=== PATIENT | female | born 1945 | race Two or more races ===

== ENCOUNTER 2024-11-10 12:40 | Emergency (ER) | payer MEDICAID, SELFPAY ==
[2024-11-10 13:04] VITALS: BP 166/83; PULSE 72; RESP 18; TEMP 36.6; O2SAT 96; BMI 42.8
--- NOTE | 2024-11-10 13:13 | XR_ITS ---
Examination: CT abdomen and pelvis without contrast. Coronal 3-D reconstructions. Sagittal 2-D reconstructions. Date and time of exam:November 10, 2024 1325 hours Comparison December 27, 2023 INDICATIONS: Generalized abdominal pain and distention today CTDI: vol (mGy): 12.8 DLP: (mGycm): 689 Technique: Axial images of the abdomen have been obtained, 3 mm slice thickness Intravenous contrast material has not been administered. Low dose protocols were performed. One or more of the following dose reduction techniques were used; automated exposure control, adjustment of the mA and/or KV according to patient size, use of iterative reconstruction technique. Findings: No focal liver or splenic lesion Contracted gallbladder No pancreatic or adrenal mass No renal or ureteral calculi, moderate bilateral renal parenchymal scar formation Aorta normal size Normal appendix No bowel obstruction No diverticulitis Atrophic anteverted uterus No adnexal mass Prominent osteopenia IMPRESSION: Moderate bilateral renal parenchymal scar formation Normal appendix No bowel obstruction diverticulitis or free air Negative for ascites
--- NOTE | 2024-11-10 13:13 | PD.EDRME ---
Rapid Medical Screening Exam RME Arrival date/time: 11/10/24 12:40 79-year-old female presents to the Emergency Department for complaints of abdominal pain Chief Complaint: Abdominal Pain Vital signs: Vital Signs Temperature 98 F 11/10/24 13:04 Pulse Rate 72 11/10/24 13:04 Respiratory Rate 18 11/10/24 13:04 Blood Pressure 166/83 H 11/10/24 13:04 Pulse Oximetry (%) 96 11/10/24 13:04 Oxygen Delivery Method Room Air 11/10/24 13:04
[2024-11-10 13:46] LABS: Basophils % (Auto) 1 % (0-2.5); Eosinophils # (Auto) 0.1 Thou/mm3 (0.0-0.5); Eosinophils % (Auto) 1 % (0-10); Hematocrit 38.9 % (36.0-46.0); Hemoglobin 13.7 g/dL (12.0-16.0); Immature Granulocytes % (Auto) 0 % (0-0); Immature Granulocytes Auto 0.02 Thou/mm3 (0.00-0.00); Lymphocytes # (Auto) 2.1 Thou/mm3 (1.0-4.8); Lymphocytes % (Auto) 37 % (10-50); Mean Corpuscular HGB Conc 35.2 g/dl (31.0-37.0); Mean Corpuscular Hemoglobin 29.5 pg (25.0-35.0); Mean Corpuscular Volume 84 fL (80-100); Monocytes # (Auto) 0.5 Thou/mm3 (0.0-0.8); Monocytes % (Auto) 9 % (0-12); Neutrophils # (Auto) 2.9 Thou/mm3 (1.8-7.7); Neutrophils % (Auto) 51 % (37-80); Nucleated Red Blood Cell % 0 /100 WBC (0); Platelet Count 255 Thou/mm3 (140-440); RDW Standard Deviation 40.8 fL (36.4-46.3); Red Blood Count 4.65 Miln/mm3 (4.00-5.20); White Blood Count 5.6 Thou/mm3 (3.6-11.0)
[2024-11-10 14:07] LABS: Collection Type, Urine Clean Catch
[2024-11-10 14:08] LABS: Alanine Aminotransferase 23 U/L (10-49); Albumin, Serum 4.5 gm/dL (3.4-4.8); Albumin/Globulin Ratio 1.7 (1.2-2.2); Alkaline Phosphatase 69 U/L (46-116); Anion Gap 6 (7-16); Aspartate Amino Transferase 32 U/L (0-34); BUN/Creatinine Ratio 14 Ratio (12-20); Bilirubin,Total 0.4 mg/dL (0.3-1.2); Blood Urea Nitrogen 10 mg/dL (9-23); Carbon Dioxide 27.1 mMol/L (20.0-31.0); Chloride 105 mMol/L (98-107); Creatinine (Component) 0.7 mg/dL (0.6-1.3); Estimated Creatinine Clearance 59.8 mL/min (>60); Globulin 2.6 gm/dL (2.3-3.5); Glucose 100 mg/dL (74-106); Lipase 38 U/L (12-53); Osmolality,Calculated 274 (275-295); Potassium 3.9 mMol/L (3.4-5.1); Sodium 138 mMol/L (136-145); Total Protein 7.1 gm/dL (5.7-8.2); Troponin I < 0.020 ng/mL (0.0-0.045); eGFR > 60 See Note
[2024-11-10 14:18] LABS: Bilirubin,Urine Negative (Negative); Blood,Urine Negative (Negative); Clarity,Urine Clear (Clear/Hazy); Color,Urine Lt-Yellow (Lt Yel-Yel); Culture Indicated,Urine Not Indicated; Glucose, Urine Negative (Negative); Ketones,Urine Negative (Negative); Leukocyte Esterase,Urine Negative (Negative); Nitrite,Urine Negative (Negative); PH,Urine 6.5 (5.0-7.0); Protein,Urine Negative (Neg - Trace); RBC,Urine 1 /hpf (0-3); Specific Gravity,Urine 1.012 (1.001-1.035); Squamous Epithelial Cell,Urine 2 /hpf (0-5); Urobilinogen,Urine Negative mg/dL (0.0-1.0); WBC,Urine 1 /hpf (0-5)
--- NOTE | 2024-11-10 14:42 | EDNOTE_ITS ---
ED Abdominal Pain RME/HPI General Chief Complaint: Abdominal Pain Stated complaint: ABD PAIN Time seen by provider: 11/10/24 13:27 Arrival date/time: 11/10/24 12:40 This is a case of 79-year-old female who came into the emergency room due to left-sided abdominal pain associated with nausea and 1 episode of vomiting abdominal pain is chronic and started the pain today patient was seen by the interior specialist today for where the EGD was done and was diagnosed to have gastritis patient denies any diarrhea but with on and off constipation patient had a bowel movement large presented no blood in stool denies any other symptoms denies any chest pain no shortness of breath Source: patient and family Mode of arrival: ambulatory Limitations: no limitations and language barrier RME / HPI RME / HPI narrative: 11/10/24 12:40 79-year-old female presents to the Emergency Department for complaints of abdominal pain Quality: aching Radiation: none Relieving factors: nothing Exacerbating factors: nothing Related Data Previous Rx's ?Medication ?Instructions ?Recorded dicyclomine 10 mg capsule 10 mg PO TID PRN abdominal p ain 11/10/24 #10 caps famotidine 20 mg tablet (Pepcid) 20 mg PO BID #60 tabs 11/10/24 omeprazole 40 mg capsule,delayed 40 mg PO QDAY #30 cap s 11/10/24 release ondansetron 4 mg disintegrating 4 mg PO Q8H PRN nausea and 11/10/24 tablet vomiting #20 tabs Allergies Allergy/AdvReac Type Severity Reaction Status Date / Time No Known Allergies Allergy Verified 11/10/24 12:41 Review of Systems Review of Systems Systems Reviewed: All systems reviewed, normal except as documented Constitutional Constitutional: Reports system reviewed and no additional complaints, except as documented, Reports as per HPI, Denies anorexia, Denies body ache(s), Denies chills, Denies increased appetite, Denies poor appetite and Denies lethargy ENT Ears, Nose, Mouth, and Throat: Denies dysphagia Cardiovascular Cardiovascular: Reports system reviewed and no additional complaints, except as documented, Reports as per HPI, Denies chest pain, Denies chest pain at rest, Denies chest pain with activity and Denies dyspnea Respiratory Respiratory: Reports system reviewed and no additional complaints, except as documented, Reports as per HPI and Denies dyspnea Gastrointestinal Gastrointestinal: Reports system reviewed and no additional complaints, except as documented, Reports abdominal pain, Denies belching, Denies bloating, Denies change in bowel habits, Denies change in stool character, Denies coffee ground emesis, Denies constipation, Denies cramping, Denies diarrhea, Denies dyspepsia, Denies dysphagia, Denies early satiety, Denies excessive flatus, Reports hematemesis and Reports vomiting Genitourinary Genitourinary: Reports system reviewed and no additional complaints, except as documented, Reports as per HPI, Denies dysuria, Denies vaginal dryness and Denies vaginal pruritus Neurologic Neurologic: Reports system reviewed and no additional complaints, except as documented and Reports as per HPI Past Medical History Past Medical History NEUROLOGIC: Negative Neurological Disorders or Seizures CARDIAC: Negative Cardiac Disorders or Congestive Heart Failure RESPIRATORY: Negative Chronic Obstructive Pulmonary Disease (COPD) or Asthma GASTROINTESTINAL: Positive Obstructive Bowel, Gastroesophageal Reflux Disease and Obesity GENITOURINARY: Negative Renal Disease REPRODUCTIVE: Negative Pelvic Inflammatory Disease MUSCULOSKELETAL: Negative Musculoskeletal Disorders ENT: Positive Cataracts ENDOCRINE: Negative Endocrine Disorders, Diabetes Mellitus Type 1 or Diabetes Mellitus Type 2 HEMATOLOGIC: Negative Blood Disorders or Sickle Cell Disease OTHER HISTORY: Negative Autoimmune Disease, Blood Transfusions, Blood Transfusion Reaction, Anesthesia Reactions, Organ Transplant, Chemotherapy, Radiation Therapy or Hyperbaric Therapy Surgical History SURGICAL: Negative Organ Transplant Social History SMOKING STATUS: Never smoker ED Exam General Limitations: Present no limitations and language barrier Head Head exam: Present atraumatic, normocephalic and normal inspection Eye Eye exam: Present normal appearance, PERRL and EOMI Neck Neck exam: Present normal inspection and full ROM Chest Chest inspection: Present normal inspection and symmetric chest wall rise; Absent tenderness Respiratory Respiratory exam: Present normal lung sounds bilaterally; Absent respiratory distress, wheezes, stridor or accessory muscle use Cardiovascular Cardiovascular exam: Present regular rate and normal rhythm; Absent systolic murmur or diastolic murmur Abdominal Exam Abdominal exam: Present soft, tenderness (left upper quadrant tenderness) and normal bowel sounds; Absent guarding, rebound, rigidity, diminished bowel sounds, hyperactive bowel sounds, hypoactive bowel sounds, organomegaly, trauma, incision, psoas sign, obturator sign, Cutler's sign, Rovsing's sign, tenderness at McBurney's Point, ascites, mass or hernia Abdominal tenderness: Present LUQ Rectal Exam Rectal exam: Present deferred Neurological Exam Neurological exam: Present alert, oriented X3 and normal gait Skin Skin exam: Present warm, dry and normal color Course Quality Measures none Orders Category Date Time Status CT abdomen pelvis wo con Stat Exams 11/10/24 13:13 Completed CBC Stat Lab 11/10/24 13:38 Completed Comprehensive Metabolic Panel Stat Lab 11/10/24 13:38 Completed Lipase Stat Lab 11/10/24 13:38 Completed Troponin I Stat Lab 11/10/24 13:38 Completed UA, C/S IF [Urinalysis, C/S if Indicated] Stat Lab 11/10/24 13:46 Completed Dicyclomine Inj [Bentyl Inj] Med 11/10/24 14:40 Discontinued 10 mg IM X1 ONE Famotidine [Pepcid] Med 11/10/24 14:40 Discontinued 40 mg PO X1 ONE Lidocaine 2% Viscous [Xylocaine 2% Viscous] Med 11/10/24 14:40 Discontinued 15 ml PO X1 ONE mg Hyd/Al Hyd/Essence Susp [Maalox Susp] Med 11/10/24 14:40 Discontinued 30 ml PO X1 ONE Vital Signs Vital signs: Vital Signs Temperature 98 F 11/10/24 13:04 Pulse Rate 72 11/10/24 13:04 Respiratory Rate 18 11/10/24 13:04 Blood Pressure 166/83 H 11/10/24 13:04 Pulse Oximetry (%) 96 11/10/24 13:04 Oxygen Delivery Method Room Air 11/10/24 13:04 Oxygen saturation 96% on room air wnl Abdominal Pain MDM MDM Narrative MDM Narrative:: This is a case of 79-year-old female who came into the emergency room due to left-sided abdominal pain associated with nausea and 1 episode of vomiting abdominal pain is chronic and started the pain today patient was seen by the [place] stro[place]ologist today for where the EGD was done and was diagnosed to have gastritis patient denies any diarrhea but with on and off constipation patient had a bowel movement large presented no blood in stool denies any other symptoms denies any chest pain no shortness of breath Physicial exam showed normal vital signs patient is not tacycardic not tacypneic blood pressure stable afebrile not hypoxic Patient is awake alert x 4 abdominal exam is benign nonsurgical no guarding no rebound no rigidity negative for rebound mild tenderness on the left upper quadrant negative psoas negative obturator negative Rovsing's negative McBurney's negative Cutler's no CVA tenderness no bladder distended or tenderness normal active bowel sounds test showed CBC showed no leukocytosis no anemia CMP showed no electrolyte imbalance kidney and liver function is normal lipase is normal CT scan showed normal exam Patient was given a Bentyl IM here in the emergency room and GI cocktail for gastritis patient was observed ambulating 30 minutes patient condition markedly improved patient verbalized that he was already informed that symptoms patient abdominal pain improved no guarding no rebound no tenderness based on my physical exam patient symtoms suggestive of gastritis treatement patient was discharged with omeprazole and Pepcid for gastritis Zofran for nausea vomiting and Bentyl for abdominal pain patient was advised to return to her interior specialist for further evaluation and treatment of gastritis I discussed the discharge instruction through a RN who can speak when understand Greek the patient understood the discharge instruction modified diet is also advised patient was disharged with comforatble conditionwith stable condition and pain fee. Walking stable Patient verbalized no further complain with the proposed management plan including the need to follow up with his/her primary care physician and and any specialist fif applicable. Discussed patient for any urgent condition or worsening sx He she needed to go to Emergency room of call 911 Patient is acknowledge the responsibility to follow up as instructed and to monitor his/her symptoms For any persistnce of the symtoms for more than 3-5 days retrun precaution advised Discussed the result of thetest and was given printed dsicahrge instruction Patient data External records reviewed:: [facility] previous records Clinical information provided by:: patient Social determinants that could affect healthcare access:: none Patient has the following chronic illnesses:: none How is presenting disease/condition affected by chronic disease/condition?: no chronic disease Evaluation data The following diagnostics were reviewed and interpreted by me:: lab results and radiology exam(s) Lab and/or radiology exams considered but not ordered:: reviwed Interpretation Summary: given Medications / Prescriptions Medications or Prescriptions considered but not ordered:: Given Medication administrations:: Medication Administration History Discontinued Medications Al Hydrox/Mg Hydrox/Simethicone (Mg Hyd/Al Hyd/Essence (Maalox Reg) Susp 30 Ml Udc) 30 ml PO X1 ONE Stop: 11/10/24 14:41 Dicyclomine HCl (Dicyclomine Inj 10 Mg/Ml 2ml Amp) 10 mg IM X1 ONE Stop: 11/10/24 14:41 Famotidine (Famotidine 20 Mg Tablet) 40 mg PO X1 ONE Stop: 11/10/24 14:41 Lidocaine HCl (Lidocaine Viscous 2% 15 Ml Udc) 15 ml PO X1 ONE Stop: 11/10/24 14:41 given Consultations Consultation(s) initiated? (list below): No Diagnosis Differential diagnosis abdominal pain: abdominal pain, acute appendicitis, constipation, diverticulitis, gastroenteritis and pancreatitis Most likely diagnosis given after review of the tests above:: gastritis Admission Indicated Admission indicated?: not indicated Admission Request Was there a request for admission?: No Disposition Plan Disposition Plan: Discharge Discharge Attestation Discharge Attestation: The patient and all family members were given an opportunity to ask questions and understood the discharge instructions. Discharge instructions specifically effects, indications for sooner follow up or return to the emergency department, and the expected course of current diagnosis. Patient condition: Stable Discharge Plan Plan Patient Disposition: HOME (Self Care) Patient condition on transfer: Stable Prescriptions/Referrals Prescriptions/Med Rec: New famotidine [Pepcid] 20 mg tablet 20 mg PO BID Qty: 60 0RF omeprazole 40 mg capsule,delayed release(DR/EC) 40 mg PO QDAY Qty: 30 0RF ondansetron 4 mg tablet,disintegrating 4 mg PO Q8H PRN (Reason: nausea and vomiting) Qty: 20 0RF dicyclomine 10 mg capsule 10 mg PO TID PRN (Reason: abdominal pain) Qty: 10 0RF Referrals: Gene Canseco MD [Primary Care Provider] - In 1 week Problem List Clinical Impression: Abdominal pain, Gastritis, chronic Patient/Caregiver Discharge Instructions Discharge Activity: activity as tolerated Education Materials: Abdominal Pain, ED Gastritis (Adult) Additional Instructions: it is very important to see your interior specialist for further evaluation and tx of gastritis avoid spicy food avoid dairy foods avoid high cholesterol food Print Language: Azeri Stand Alone Forms: Leonie Award Info., Patient Portal Info Letter PA/SUPERVISOR [employer]PER[employer] Supervising Physician PA/AYLIN Supervising Physician: dr valera
[2024-11-10] MEDS: FAMOTIDINE 20 MG TABLET 40 MG PO (14:51)
[2024-11-10] MEDS: MG HYD/AL HYD/SIME (Maalox Reg) SUSP 30 ML UDC PO (14:52)
[2024-11-10] MEDS: LIDOCAINE VISCOUS 2% 15 ML UDC PO (14:52)
[2024-11-10] MEDS: DICYCLOMINE INJ 10 MG/ML 2ML AMP IM (14:53)
== END 2024-11-10 15:23 | disposition home or self-care (01) ==
PROVIDERS: Nurse Practitioner Primary Care; Emergency Provider Emergency Medicine; PCP Family Medicine
DX: K29.70 Gastritis, unspecified, without bleeding (principal)
CPT/HCPCS: 36415; 74176; 80053; 81001; 83690; 84484; 85025; 96372; 99284; J0500; J3490; A9270

== ENCOUNTER 2025-06-04 21:36 | Emergency (ER) | payer MEDICAID, SELFPAY ==
[2025-06-04 21:37] VITALS: BMI 37.8
--- NOTE | 2025-06-04 21:40 | EKG_ITS ---
[facility] Test Date: 2025-06-04 Pat Name: AUGUSTUS MAYFIELD Department: Room: - Gender: Female [place]: : 1945 Requested By: ED Temporary Provider Order Number: [id number] Reading MD: ED Temporary Provider Measurements Intervals [place] Rate: 74 P: 48 MN: 177 QRS: -14 QRSD: 90 T: 32 QT: 416 QTc: 462 Interpretive Statements SINUS RHYTHM No previous ECG available for comparison /[id number]/[email or web address]/[id number].pdf
[2025-06-04 21:56] VITALS: BP 132/82; PULSE 74; RESP 18; TEMP 37; O2SAT 96
--- NOTE | 2025-06-04 22:05 | PD.EDABDPN ---
ED Abdominal Pain RME/HPI General Chief Complaint: Abdominal Pain Stated complaint: RIGHT UPPER ABD PAIN RADIATING TO CHEST Time seen by provider: 06/04/25 22:08 Arrival date/time: 06/04/25 21:36 RME / HPI RME / HPI narrative: See [facility] for Dr. Jefferson's HPI Documentation. Related Data Previous Rx's ?Medication ?Instructions ?Recorded dicyclomine 10 mg capsule 10 mg PO TID PRN abdominal pain 11/10/24 #10 caps famotidine 20 mg tablet (Pepcid) 20 mg PO BID #60 tabs 11/10/24 omeprazole 40 mg capsule,delayed 40 mg PO QDAY #30 caps 11/10/24 release ondansetron 4 mg disintegrating 4 mg PO Q8H PRN nausea and 11/10/24 tablet vomiting #20 tabs acetaminophen 300 mg-codeine 30 mg 2 tab PO Q8H PRN pain #20 tabs 06/05/25 tablet cefdinir 300 mg capsule 300 mg PO BID #14 caps 06/05/25 ondansetron 4 mg disintegrating 4 mg PO TID PRN nausea and 06/05/25 tablet vomiting 30 days #10 tabs Allergies Allergy/AdvReac Type Severity Reaction Status Date / Time No Known Allergies Allergy Verified 06/04/25 21:37 Review of Systems Review of Systems Systems Reviewed: All systems reviewed, normal except as documented Past Medical History Past Medical History GASTROINTESTINAL: Positive Obstructive Bowel, Gastroesophageal Reflux Disease and Obesity ENT: Positive Cataracts ED Exam Narrative Physical exam: See [facility] for Dr. Jefferson's Physical Exam Documentation. Course Quality Measures none Orders Category Date Time Status EKG (ED ONLY) *Do not use* NOW Care 06/04/25 21:40 Completed Saline [Insert IV] NOW Care 06/04/25 22:06 Completed Straight [In and Out Catheter] X1 Care 06/04/25 22:[address] abdomen pelvis wo con Stat Exams 06/04/25 22:07 Completed EKG (ED Only) Stat Exams 06/04/25 21:40 Draft US gall bladder Stat Exams 06/05/25 00:00 Completed Amylase Stat Lab 06/04/25 23:06 Completed Bilirubin,Direct Stat Lab 06/04/25 23:06 Completed CBC Stat Lab 06/04/25 23:06 Completed CMP [Comprehensive Metabolic Panel] Stat Lab 06/04/25 23:06 Completed Hemoglobin A1C [Glycohemoglobin w (eAG)] Stat Lab 06/04/25 23:06 Completed Lipase Stat Lab 06/04/25 23:06 Completed Magnesium Stat Lab 06/04/25 23:06 Completed UA, C/S IF [Urinalysis, C/S if Indicated] Stat Lab 06/05/25 00:06 Completed Urine Culture Stat Lab 06/05/25 00:06 Received Famotidine Inj [Pepcid Inj] Med 06/04/25 22:06 Discontinued 20 mg IVP X1 ONE Morphine* Inj Med 06/04/25 22:06 Discontinued 4 mg IV X1 ONE Ondansetron Inj [Zofran Inj] Med 06/04/25 22:06 Discontinued 4 mg IVP X1 ONE POTASSIUM CHL 10% Liq 15 ML Med 06/05/25 00:59 Discontinued 40 meq PO X1 ONE POTASSIUM CHL 10% Liq 15 ML Med 06/05/25 01:00 Discontinued 40 meq PO X1 ONE Pantoprazole Inj [Protonix Inj] Med 06/04/25 22:06 Discontinued 40 mg IVP X1 ONE Sodium Chloride 0.9% 1000 ml [Ns] 1,000 ml Med 06/04/25 22:06 Discontinued IV 999 mls/hr Vital Signs Vital signs: Vital Signs Temperature 98.6 F 06/04/25 21:56 Pulse Rate 74 06/04/25 21:56 Respiratory Rate 18 06/04/25 21:56 Blood Pressure 132/82 H 06/04/25 21:56 Pulse Oximetry (%) 96 06/04/25 21:56 Oxygen Delivery Method Room Air 06/04/25 21:56 Abdominal Pain MDM MDM Narrative MDM Narrative:: This section includes all my notes and documentations, including HPI, PE, and ED course. Harrison Jefferson MD HPI: 80 y/o female with RUQ tenderness. Reports on and off pain for months. Severe since yesterday. Has nausea. No history of abdominal surgery. No fever or chills. No urinary symptoms. No other complaints. ROS: All negative except as documented in HPI. Physical Exam: General: Alert and oriented. In severe pain. Eyes: Conjunctivae and lids clear. ENT: No nasal congestion. Neck: Supple. Heart: RRR. Lungs: No respiratory distress. Good air movement. No rhonchi, wheezing, rales. Abdomen: Soft with RUQ tenderness. Normal bowel sounds. No distension. No rebound or guarding. Back: No CVA tenderness. Skin: Warm and dry. Neuro: Alert and oriented X 3. I reviewed all diagnostic test results: My interpretation of the EKG: NSR (74 bpm) with no ST-T changes. My review of the Abdomen/Pelvis CT report is NAD. My review of the Gallbladder US report is: Gallbladder sludge without evidence of acute cholecystitis. Blood tests unremarkable, except K 3.3. UA showed positive nitrite, positive leukocyte esterase, 23 WBC, and 4+ bacteria. At this point, diagnoses include: Gallbladder Sludge UTI Treatment here included: Famotidine 20 mg IV and Protonix 40 mg IV (prior to diagnostic tests) IVF Zofran 4 mg IV Morphine 4 mg IV She felt much better. Recommended outpatient treatment. Based on my best medical judgment, made decision no further evaluation or treatment indicated at this time. Patient understands and agrees to the discharge instructions customized and printed, see below. Discharge Instructions from Dr. Jefferson: 1. After evaluation, your symptoms are due to sludge in your gallbladder.? You need gallbladder to help digest fatty foods. 2. So to prevent future attacks, avoid all fatty and oily and greasy and buttery and dairy foods.? This usually means take out and fast food restaurants. 3. Zofran for nausea/vomiting.? Tylenol with codeine for severe pain.? Clear liquid diet for 24 hours then advance diet slowly as tolerated. Cefdinir for urine infection. 4. See a private doctor on 06/07/2025 for recheck and further care. Ask to review all test results and official radiology reports, to make sure you receive all necessary follow-ups and monitoring. Ask for to see a surgeon. So your gallbladder can be surgically removed to prevent your pain. 5. Seek immediate medical care with intolerable pain, fever, or with any concerns. Harrison Jefferson MD Patient data External records reviewed:: [facility] previous records (Reviewed prior ED records from 11/10/24. Patient was seen for Abdominal pain.) Clinical information provided by:: patient Social determinants that could affect healthcare access:: none Patient has the following chronic illnesses:: Obstructive Bowel, Gastroesophageal Reflux Disease, Obesity, Cataracts How is presenting disease/condition affected by chronic disease/condition?: exacerbated by Evaluation data The following diagnostics were reviewed and interpreted by me:: EKG tracing(s) (My interpretation of the EKG: NSR (74 bpm) with no ST-T changes. Harrison Jeffesron MD) Lab and/or radiology exams considered but not ordered:: None Interpretation Summary: I reviewed all diagnostic test results: My interpretation of the EKG: NSR (74 bpm) with no ST-T changes. My review of the Abdomen/Pelvis CT report is NAD. My review of the Gallbladder US report is: Gallbladder sludge without evidence of acute cholecystitis. Blood tests unremarkable, except K 3.3. UA showed positive nitrite, positive leukocyte esterase, 23 WBC, and 4+ bacteria. Medications / Prescriptions Medications or Prescriptions considered but not ordered:: None Medication administrations:: Medication Administration History Discontinued Medications Famotidine (Famotidine Inj 10 Mg/Ml Vial 2 Ml) 20 mg IVP X1 ONE Stop: 06/04/25 22:07 Last Admin: 06/04/25 23:22 Dose: 20 mg Documented By: PRANEETH Sodium Chloride (Ns) 1,000 mls @ 999 mls/hr IV .Q1H1M ONE Stop: 06/04/25 23:06 Last Infusion: 06/05/25 00:49 Dose: Infused Documented By: Admin: 06/04/25 23:25 Dose: 999 mls/hr Documented By: PRANEETH Morphine Sulfate (Morphine Sulf Inj 4 Mg/Ml Vial) 4 mg IV X1 ONE Stop: 06/04/25 22:07 Last Admin: 06/04/25 23:24 Dose: 4 mg Documented By: PRANEETH Ondansetron HCl (Ondansetron Inj 2 Mg/Ml Inj 2 Ml) 4 mg IVP X1 ONE; Protocol Stop: 06/04/25 22:07 Last Admin: 06/04/25 23:21 Dose: 4 mg Documented By: PRANEETH Pantoprazole Sodium (Pantoprazole Inj 40 Mg Vial) 40 mg IVP X1 ONE Stop: 06/04/25 22:07 Last Admin: 06/04/25 23:22 Dose: 40 mg Documented By: PRANEETH Potassium Chloride (Potassium Chloride 10% 20 Meq/15 Ml Udc) 40 meq PO X1 ONE Stop: 06/05/25 01:00 Last Admin: 06/05/25 01:45 Dose: 40 meq Documented By: CB Potassium Chloride (Potassium Chloride 10% 20 Meq/15 Ml Udc) 40 meq PO X1 ONE Stop: 06/05/25 01:01 Last Admin: 06/05/25 02:14 Dose: 40 meq Documented By: PRANEETH Treatment here included: Famotidine 20 mg IV and Protonix 40 mg IV (prior to diagnostic tests) IVF Zofran 4 mg IV Morphine 4 mg IV Consultations Consultation(s) initiated? (list below): No Diagnosis Differential diagnosis abdominal pain: acute appendicitis, calculus of kidney, constipation, diverticulitis, endometriosis, gastroenteritis, pancreatitis, small bowel obstruction and other (GERD, Biliary colic) Most likely diagnosis given after review of the tests above:: Gallbladder Sludge UTI Admission Indicated Admission indicated?: not indicated Explain why admission is indicated or not indicated:: With significant improvement and no condition needing emergent intervention, there was no indication for admission. Admission Request Was there a request for admission?: No Disposition Plan Disposition Plan: Discharge Discharge Attestation Discharge Attestation: The patient and all family members were given an opportunity to ask questions and understood the discharge instructions. Discharge instructions specifically effects, indications for sooner follow up or return to the emergency department, and the expected course of current diagnosis. Patient condition: Stable Discharge Plan Plan Patient Disposition: HOME (Self Care) Prescriptions/Referrals Prescriptions/Med Rec: New acetaminophen-codeine 300-30 mg tablet 2 tab PO Q8H MDD 6 PRN (Reason: pain) Qty: 20 0RF ondansetron 4 mg tablet,disintegrating 4 mg PO TID PRN (Reason: nausea and vomiting) 30 Days Qty: 10 0RF cefdinir 300 mg capsule 300 mg PO BID Qty: 14 0RF No Action famotidine [Pepcid] 20 mg tablet 20 mg PO BID Qty: 60 0RF omeprazole 40 mg capsule,delayed release(DR/EC) 40 mg PO QDAY Qty: 30 0RF ondansetron 4 mg tablet,disintegrating 4 mg PO Q8H PRN (Reason: nausea and vomiting) Qty: 20 0RF dicyclomine 10 mg capsule 10 mg PO TID PRN (Reason: abdominal pain) Qty: 10 0RF Referrals: Samra Archer MD [Primary Care Provider] - In 1 week Problem List Clinical Impression: Gallbladder sludge, UTI (urinary tract infection) Patient/Caregiver Discharge Instructions Discharge Activity: activity as tolerated Education Materials: ED Gallstones with Biliary Colic, ED CYSTITIS Female Adult Additional Instructions: Instrucciones de ricardo del Dr. Jefferson: 1. Tras la evaluaci?n, sahdia s?ntomas se deben a la presencia de lodo biliar en la ves?cula biliar. La ves?cula biliar es necesaria para digerir los alimentos grasos. 2. Para prevenir futuros episodios, evite todos los alimentos grasos, aceitosos, fritos, con mantequilla y l?cteos. Hico generalmente significa evitar la comida para llevar y los restaurantes de comida r?pida. 3. Zofran para las n?useas/v?mitos. Tylenol con code?na para el dolor intenso. Dieta l?quida jhoan nae 24 horas y luego avance la dieta gradualmente seg?n la tolerancia. Cefdinir para infecciones urinarias. 4. Consulte con un m?dico particular el 07/06/2025 para katherin revisi?n y atenci?n adicional. Solicite revisar todos los resultados de las pruebas e informes radiol?gicos oficiales para asegurarse de recibir todo el seguimiento y la monitorizaci?n necesarios. Solicite katherin consulta con un cirujano. Warner ves?cula biliar puede extirparse quir?rgicamente para aliviar el dolor. 5. Busque atenci?n m?dica inmediata si presenta dolor intolerable, fiebre o cualquier otra inquietud. Discharge Instructions from Dr. Jefferson: 1. After evaluation, your symptoms are due to sludge in your gallbladder.? You need gallbladder to help digest fatty foods. 2. So to prevent future attacks, avoid all fatty and oily and greasy and buttery and dairy foods.? This usually means take out and fast food restaurants. 3. Zofran for nausea/vomiting.? Tylenol with codeine for severe pain.? Clear liquid diet for 24 hours then advance diet slowly as tolerated. Cefdinir for urine infection. 4. See a private doctor on 06/07/2025 for recheck and further care. Ask to review all test results and official radiology reports, to make sure you receive all necessary follow-ups and monitoring. Ask for to see a surgeon. So your gallbladder can be surgically removed to prevent your pain. 5. Seek immediate medical care with intolerable pain, fever, or with any concerns. Print Language: Bulgarian Stand Alone Forms: Leonie Award Info., Patient Portal Info Letter
--- NOTE | 2025-06-04 22:07 | XR_ITS ---
Examination: CT abdomen and pelvis without contrast. Coronal 3-D reconstructions. Sagittal 2-D reconstructions. Date and time of exam: June 12, 2025, 0125 hours, comparison November 10, 2024 INDICATIONS: Epigastric pain beginning today CTDI: vol (mGy): 12.41 DLP: (mGycm): 697 Technique: Axial images of the abdomen have been obtained, 3 mm slice thickness Intravenous contrast material has not been administered. Low dose protocols were performed. One or more of the following dose reduction techniques were used; automated exposure control, adjustment of the mA and/or KV according to patient size, use of iterative reconstruction technique. Findings: Mild enlargement cardiac contour No visualized liver or splenic lesion No gallstones No pancreatic or adrenal mass No renal or ureteral calculi,. No hydronephrosis or renal calculi Aorta normal size Normal appendix No bowel obstruction Colonic diverticulosis, no diverticulitis Anteverted uterus Intact urinary bladder Severe osteopenia, grade 1 anterolisthesis L5 on S1 IMPRESSION: No acute process in the abdomen or pelvis
[2025-06-04 23:20] VITALS: BP 124/59; PULSE 64; RESP 22; TEMP 37; O2SAT 97
[2025-06-04] MEDS: ONDANSETRON INJ 2 MG/ML INJ 2 ML 4 MG IVP (23:21)
[2025-06-04] MEDS: FAMOTIDINE INJ 10 MG/ML VIAL 2 ML 20 MG IVP (23:22)
[2025-06-04] MEDS: MORPHINE SULF INJ 4 MG/ML VIAL IV (23:24)
[2025-06-04] MEDS: SODIUM CHLORIDE 0.9% 1000 ML 1,000 ML 999 ML IV (23:25)
[2025-06-04 23:32] LABS: Basophils # (Auto) 0.0 Thou/mm3 (0.0-0.2); Basophils % (Auto) 1 % (0-2.5); Eosinophils # (Auto) 0.1 Thou/mm3 (0.0-0.5); Eosinophils % (Auto) 2 % (0-10); Hematocrit 38.1 % (36.0-46.0); Hemoglobin 13.0 g/dL (12.0-16.0); Immature Granulocytes Auto 0.01 Thou/mm3 (0.00-0.00); Lymphocytes # (Auto) 2.0 Thou/mm3 (1.0-4.8); Lymphocytes % (Auto) 27 % (10-50); Mean Corpuscular HGB Conc 34.1 g/dl (31.0-37.0); Mean Corpuscular Hemoglobin 29.5 pg (25.0-35.0); Mean Corpuscular Volume 86 fL (80-100); Monocytes # (Auto) 0.6 Thou/mm3 (0.0-0.8); Monocytes % (Auto) 8 % (0-12); Neutrophils # (Auto) 4.6 Thou/mm3 (1.8-7.7); Neutrophils % (Auto) 63 % (37-80); Nucleated Red Blood Cell # 0.00 Thou/mm3 (0.00-0.00); Nucleated Red Blood Cell % 0 /100 WBC (0); Platelet Count 270 Thou/mm3 (140-440); RDW Standard Deviation 40.2 fL (36.4-46.3); Red Blood Count 4.41 Miln/mm3 (4.00-5.20); White Blood Count 7.3 Thou/mm3 (3.6-11.0)
[2025-06-04 23:38] LABS: Glucose Estimated Average 140 mg/dL (80-131); Hemoglobin A1C 6.5 % Hgb (4.8-6.0)
[2025-06-04 23:51] LABS: Alanine Aminotransferase 27 U/L (10-49); Albumin, Serum 4.4 gm/dL (3.4-4.8); Albumin/Globulin Ratio 1.6 (1.2-2.2); Alkaline Phosphatase 70 U/L (46-116); Amylase 51 U/L (30-118); Anion Gap 11 (7-16); Aspartate Amino Transferase 33 U/L (0-34); BUN/Creatinine Ratio 21 Ratio (12-20); Bilirubin,Direct < 0.1 mg/dL (0.0-0.3); Bilirubin,Total 0.2 mg/dL (0.3-1.2); Blood Urea Nitrogen 19 mg/dL (9-23); Calcium 9.3 mg/dL (8.3-10.6); Calcium (Corrected) 9.3 mg/dL (8.5-10.1); Carbon Dioxide 30.4 mMol/L (20.0-31.0); Chloride 100 mMol/L (98-107); Creatinine (Component) 0.9 mg/dL (0.6-1.3); Estimated Creatinine Clearance 50.3 mL/min (>60); Globulin 2.8 gm/dL (2.3-3.5); Glucose 152 mg/dL (74-106); Lipase 44 U/L (12-53); Magnesium 2.0 mg/dL (1.6-2.6); Osmolality,Calculated 286 (275-295); Potassium 3.3 mMol/L (3.4-5.1); Sodium 141 mMol/L (136-145); Total Protein 7.2 gm/dL (5.7-8.2); eGFR > 60 See Note
--- NOTE | 2025-06-05 | XR_ITS ---
Examination: Abdomen sonogram, Limited Date and time of exam: June 05, 2025, 0013 hours INDICATIONS: Onset epigastric pain and discomfort today Technique: Real-time martinez scale transabdominal sonographic images of the upper abdomen obtained. Findings: Gallbladder sludge Negative for gallstones Normal gallbladder wall Normal common bile duct 0.5 cm - pancreatic head 3.0 cm Liver 13.7 cm fatty infiltration Normal hepatopetal portal venous flow Patent IVC IMPRESSION: Gallbladder sludge, negative for cholelithiasis, negative for cholecystitis
[2025-06-05 00:10] LABS: Collection Type, Urine Clean Catch
[2025-06-05 00:41] LABS: Bacteria,Urine 4+; Bilirubin,Urine Negative (Negative); Blood,Urine Negative (Negative); Clarity,Urine Clear (Clear/Hazy); Color,Urine Lt-Yellow (Lt Yel-Yel); Glucose, Urine Negative (Negative); Ketones,Urine Negative (Negative); Leukocyte Esterase,Urine Positive (Negative); Nitrite,Urine Positive (Negative); PH,Urine 7.5 (5.0-7.0); Protein,Urine Negative (Neg - Trace); RBC,Urine 2 /hpf (0-3); Specific Gravity,Urine 1.020 (1.001-1.035); Squamous Epithelial Cell,Urine 3 /hpf (0-5); Urobilinogen,Urine Negative mg/dL (0.0-1.0); WBC,Urine 23 /hpf (0-5)
[2025-06-05 00:43] LABS: Culture Indicated,Urine Yes
[2025-06-05 01:45] VITALS: BP 113/70; PULSE 68; RESP 17; TEMP 36.7; O2SAT 96
[2025-06-05] MEDS: POTASSIUM CHLORIDE 10% 20 MEQ/15 ML UDC 40 MEQ PO ×2 (01:45→02:14)
--- NOTE | 2025-06-05 01:46 | PRELIM_ITS ---
CT scan of the abdomen and pelvis without intravenous contrast (axial sections with sagittal and coronal reformats) June 05, 2025 0052 hours Clinical History: UPPER ABD PAIN Findings: Right basilar streaky atelectasis is present. There is a 2mm callcified granuloma at the left lung base.The left hemidiaphragm is mildly elevated. The liver, gallbladder, pancreas, spleen, kidneys and adrenals are unremarkable on this noncontrast study. A small hiatal hernia is present.No evidence of bowel obstruction. There are multiple colonic diverticula without evidence of diverticulitis.The appendix is within normal limits. There is no mesenteric or retroperitoneal adenopathy. The urinary bladder is unremarkable. The uterus is unremarkable.There is no free fluid or free air. The abdominal aorta demonstrates atheromatous calcification without evidence of aneurysm. A small fat-containing right inguinal hernia is present. There is L5 bilateral spondylolysis with mild anterolisthesis of the L5 on S1. Degenerative changes are identified in the spine. Impression: No evidence of acute intra-abdominal or pelvic pathology. Other findings as described above. Report Electronically Signed By: Solis Ackerman 06/05/2025 1:45:53 AM [EST]
--- NOTE | 2025-06-05 01:46 | PRELIM_ITS ---
Right upper quadrant abdominal ultrasound. June 05, 2025 0013 hours Clinical history: RUQ tenderness Technique: Grayscale and color flow images of the right upper quadrant are provided. Hepatic and portal veins were also imaged with color flow images. Correlated with the prior CT study performed earlier the same day 06/05/2025 Findings: The liver is normal in echogenicity. No intrahepatic biliary ductal dilatation. Layeredhyperechogenisity is identified within the gallbladder, which may represent sludge.No gallbladder calculus, wall thickening or pericholecystic fluid is demonstrated. The common bile duct is normal in caliber at 5mm. The pancreas is unremarkable to the extent visualized. The pancreatic tail is obscured by bowel gas. Impression: Gallbladder sludge without evidencce of acute cholecystitis. Report Electronically Signed By: Solis Ackerman 06/05/2025 1:46:30 AM [EST]
[2025-06-05 02:15] VITALS: BP 114/48; PULSE 65; RESP 20; TEMP 36.7; O2SAT 98
== END 2025-06-05 03:01 | disposition home or self-care (01) ==
PROVIDERS: Emergency Provider Emergency Medicine; PCP Obstetrics & Gynecology
DX: K82.8 Other specified diseases of gallbladder (principal); N39.0 Urinary tract infection, site not specified; R11.2 Nausea with vomiting, unspecified
CPT/HCPCS: 36415; 74176; 76705; 80053; 81001; 82150; 82248; 83036; 83690; 83735; 85025; 87077; 87086; 87186; 93005; 96361; 96374; 96375; 99284; J2270; J2405; J2470; J3490; J7030; A9270